=== PATIENT | male | born 1955 | race Caucasian/White ===

== ENCOUNTER 2023-06-25 10:46 | Day surgery (SDC) | payer BC, MEDICARE ==
[2023-06-18 09:01] LABS: BASOPHILS # (AUTO) 0.1 X10'3 (0-0.2); BASOPHILS % (AUTO) 0.6 % (0-1); EOSINOPHILS # (AUTO) 0.1 X10'3 (0-0.9); EOSINOPHILS % (AUTO) 1.4 % (0-6); HEMATOCRIT 45.7 % (42.0-52.0); HEMOGLOBIN 15.7 g/dl (14.0-17.9); LYMPHOCYTES # (AUTO) 1.4 X10'3 (1.1-4.8); LYMPHOCYTES % (AUTO) 15.6 % (21-51); MEAN CORPUSCULAR HEMOGLOBIN 30.4 PG (27.0-31.0); MEAN CORPUSCULAR HGB CONC 34.3 g/dL (33.0-36.5); MEAN CORPUSCULAR VOLUME 88.6 FL (78-98); MEAN PLATELET VOLUME 7.9 FL (7.4-10.4); MONOCYTES # (AUTO) 0.9 X10'3 (0-0.9); MONOCYTES % (AUTO) 9.9 % (2-12); NEUTROPHILS # (AUTO) 6.6 X10'3 (1.8-7.7); NEUTROPHILS % (AUTO) 72.5 % (42-75); PLATELET COUNT 205 X10'3 (140-440); RED BLOOD COUNT 5.16 X10'6 (4.70-6.10); RED CELL DISTRIBUTION WIDTH 16.3 % (11.5-14.5); WHITE BLOOD COUNT 9.1 X10'3 (4.5-11.0)
[2023-06-18 09:08] LABS: ALBUMIN 3.6 G/DL (3.4-5.0); ANION GAP 8 (8-16); BLOOD UREA NITROGEN 21 MG/DL (7-18); BUN/CREATININE RATIO 15.7 (10.0-20.0); CHLORIDE 104 MMOL/L (99-107); CREATININE 1.34 MG/DL (0.60-1.10); GLUCOSE 98 MG/DL (70-104); POTASSIUM 5.1 MMOL/L (3.5-5.1); SODIUM 138 MMOL/L (135-145); TOTAL CARBON DIOXIDE 25.7 MMOL/L (24-32); eGFR 53 ML/MIN
[2023-06-18 09:12] LABS: APTT 31 SECONDS (22-32); INR 1.1 INR; PROTHROMBIN TIME 11.8 SECONDS (9.0-12.0)
[2023-06-25] VITALS (11 sets, daily range): BP systolic 97–118; BP diastolic 64–72; PULSE 59–87; RESP 12–14; TEMP 97.8; O2SAT 92–98
[~2023-06-25] VITALS: Ht 188 cm; Wt 131.2 kg
[2023-06-25] MEDS ORDERED: MIDAZolam 1mg/ml 10ml vial IV ONE (11:15)
[2023-06-25] MEDS ORDERED: fentaNYL/PF 50MCG/1 ML 2ML syringe IV ONE (11:15)
[2023-06-25] MEDS ORDERED: normal saline 1000ml 1,000 ML IV SCH (11:15)
[2023-06-25] MEDS ORDERED: FLO0.4C PO (11:27)
[2023-06-25] MEDS ORDERED: APIX5TAB3 PO (11:27)
[2023-06-25] MEDS ORDERED: ATOR40TA72 PO (11:27)
[2023-06-25] MEDS ORDERED: AMI200T PO (11:27)
[2023-06-25] MEDS ORDERED: EMPA10TA PO (11:27)
[2023-06-25] MEDS ORDERED: METO-384 PO (11:27)
[2023-06-25] MEDS ORDERED: SPIR25TA5 PO (11:27)
[2023-06-25] MEDS ORDERED: SACU1TAB7 PO (11:27)
== END 2023-06-25 14:45 | disposition home or self-care (01) ==
LOC: SSTAY O 10:46
PROVIDERS: ATTEND Student in an Organized Health Care Education/Training Program
DX: I48.91 Unspecified atrial fibrillation (principal); I50.9 Heart failure, unspecified; Z85.528 Personal history of other malignant neoplasm of kidney; Z79.899 Other long term (current) drug therapy
CPT/HCPCS: 36415; 80048; 84132; 85025; 85610; 85730; 92960; 93005; J2250; J3010; J7030; A4620